=== PATIENT | male | born 2005 | race Caucasian/White ===

== ENCOUNTER 2025-06-28 17:23 | Emergency (ER) | payer BC ==
[2025-06-28] MEDS ORDERED: diphenhydrAMINE 50 MG/ML VIAL ONE ×2 (18:33→20:07)
[2025-06-28] MEDS ORDERED: Ketorolac Tromethamine 30 MG (1 mL) VIAL ONE (18:33)
[2025-06-28] MEDS ORDERED: Acetaminophen 500 MG TAB ONE (18:33)
[2025-06-28] MEDS ORDERED: Prochlorperazine 10 MG/2 ML VIAL ONE (18:33)
[2025-06-28] MEDS ORDERED: Magnesium 2 GM/50 ML BAG (IN WATER) ONE (20:07)
[2025-06-28] MEDS ORDERED: Dexamethasone 10 MG/ML VIAL ONE (20:07)
[2025-06-28] MEDS ORDERED: Droperidol 5 MG/2 ML VIAL ONE (20:56)
[2025-06-28] MEDS ORDERED: KETAMINE IVPB SCH (22:30)
[2025-06-28] MEDS ORDERED: SODIUM CHLORIDE 0.9% IVPB SCH (22:30)
[2025-06-28] MEDS ORDERED: NACL IVPB SCH ×2 (22:45)
[2025-06-28] MEDS ORDERED: SODIUM CHLORIDE IVPB SCH ×2 (22:45)
[2025-06-28] MEDS ORDERED: ADMIXTURE FEE IVPB SCH (22:45)
[2025-06-28] MEDS ORDERED: KETAMINE HCL IVPB SCH ×2 (22:45)
== END 2025-06-29 00:04 | disposition home or self-care (01) ==
LOC: ERS 17:23
DX: G43.909 Migraine, unspecified, not intractable, without status migrainosus (principal); Z55.6 Problems related to health literacy
CPT/HCPCS: 70450; 93005; 96365; 96366; 96368; 96375; 96376; J0780; J1100; J1200; J1790; J1885; J3475; J3490